=== PATIENT | female | born 1975 | race Caucasian/White ===

== ENCOUNTER → 2020-08-14 15:20 | Outpatient (CLI) | payer OTHER, SELFPAY ==
--- NOTE | ~2020-08-14 | MM_ITS ---
EXAMINATION: MM scrn janneth implant BI w zaria HISTORY: Screening mammogram TECHNIQUE: Craniocaudal and mediolateral oblique 3-D tomosynthesis images with implant displacement a nd synthetic 2-D images were generated. Craniocaudal and mediolateral oblique views of the breasts wi thout implant displacement were obtained using full field digital mammography. CAD analysis was submi tted and interpreted. COMPARISON: Comparison to multiple prior studies sequentially, with oldest reviewed study dated 08/25. BREAST PARENCHYMAL COMPOSITION: There are scattered areas of fibroglandular density. FINDINGS: There is no evidence of suspicious mass, calcification, or architectural distortion to sugg est malignancy in either breast. There has been no suspicious interval change. IMPRESSION: 1. No mammographic evidence of malignancy. 2. Recommend routine screening mammography in one year. BI-RADS Category 1: Negative Reviewed, dictated and finalized at location A.
== END ==
PROVIDERS: Visit Provider Obstetrics & Gynecology
DX: Z12.31 Encounter for screening mammogram for malignant neoplasm of breast (principal)
CPT/HCPCS: 77063; 77067

== ENCOUNTER → 2021-09-01 10:17 | Outpatient (CLI) | payer OTHER, SELFPAY ==
--- NOTE | ~2021-09-01 | MM_ITS ---
EXAMINATION: MM scrn janneth implant BI w zaria HISTORY: Screening mammogram TECHNIQUE: Craniocaudal and mediolateral oblique 3-D tomosynthesis images with implant displacement a nd synthetic 2-D images were generated. Craniocaudal and mediolateral oblique views of the breasts wi thout implant displacement were obtained using full field digital mammography. CAD analysis was submi tted and interpreted. COMPARISON: 08/14/2020, 05/29/2017, 01/21/2016 bilateral implant screening mammogram examinations BREAST PARENCHYMAL COMPOSITION: There are scattered areas of fibroglandular density. FINDINGS: Status post bilateral augmentation mammoplasty. There is no evidence of suspicious mass, ca lcification, or architectural distortion to suggest malignancy in either breast. There has been no tolliver spicious interval change. IMPRESSION: 1. No mammographic evidence of malignancy. 2. Recommend routine screening mammography in one year. BI-RADS Category 1: Negative Reviewed, dictated and finalized at location A.
== END ==
PROVIDERS: PCP Obstetrics & Gynecology; Visit Provider Obstetrics & Gynecology
DX: Z12.31 Encounter for screening mammogram for malignant neoplasm of breast (principal)
CPT/HCPCS: 77063; 77067

== ENCOUNTER 2022-01-22 14:18 | Outpatient (CLI) | payer OTHER, SELFPAY ==
--- NOTE | ~2022-01-22 | US_ITS ---
EXAMINATION:US venous doppler LE LT INDICATION:Leg pain TECHNIQUE: Multiple grayscale, color flow and Doppler images of the left lower extremity deep venous systems were obtained and reviewed. COMPARISON:Ultrasound dated 08/11/2011 FINDINGS: The common femoral, superficial femoral and popliteal veins demonstrate normal respiratory variation, augmentation and compressibility. Color flow is also seen within the posterior tibial, pe roneal, greater saphenous and profunda veins. IMPRESSION: 1: No lower extremity deep venous thrombosis. Reviewed, dictated and finalized at location A.
== END 2022-01-22 14:19 | disposition home or self-care (01) ==
PROVIDERS: PCP Internal Medicine; Visit Provider Internal Medicine
DX: R22.42 Localized swelling, mass and lump, left lower limb (principal)
CPT/HCPCS: 93971

== ENCOUNTER 2022-05-29 13:13 | Outpatient (CLI) | payer OTHER, SELFPAY ==
[2022-05-29 13:50] LABS: Strep Group A RT-PCR NOT DETECTED (Negative)
== END 2022-05-29 13:14 | disposition home or self-care (01) ==
LOC: ANHLAB 13:15
PROVIDERS: PCP Internal Medicine; Visit Provider Internal Medicine
DX: J02.9 Acute pharyngitis, unspecified (principal)
CPT/HCPCS: 87651

== ENCOUNTER → 2023-01-16 09:39 | Outpatient (CLI) | payer OTHER, SELFPAY ==
--- NOTE | ~2023-01-16 | MM_ITS ---
EXAMINATION: MM scrn janneth implant BI w zaria HISTORY: Screening mammogram TECHNIQUE: Craniocaudal and mediolateral oblique 3-D tomosynthesis images with implant displacement a nd synthetic 2-D images were generated. Craniocaudal and mediolateral oblique views of the breasts wi thout implant displacement were obtained using full field digital mammography. CAD analysis was submi tted and interpreted. COMPARISON: 09/01/2021, 08/14/2020, 05/29/2017 bilateral implant screening mammogram examinations BREAST PARENCHYMAL COMPOSITION: There are scattered areas of fibroglandular density. FINDINGS: Status post bilateral augmentation mammoplasty. There is no evidence of suspicious mass, ca lcification, or architectural distortion to suggest malignancy in either breast. There has been no tolliver spicious interval change. IMPRESSION: 1. No mammographic evidence of malignancy. 2. Recommend routine screening mammography in one year. BI-RADS Category 1: Negative Reviewed, dictated and finalized at location A.
== END ==
PROVIDERS: PCP Obstetrics & Gynecology; Visit Provider Obstetrics & Gynecology
DX: Z12.31 Encounter for screening mammogram for malignant neoplasm of breast (principal)
CPT/HCPCS: 77063; 77067

== ENCOUNTER 2023-06-16 07:31 | Outpatient (CLI) | payer OTHER, SELFPAY ==
[2023-06-16 08:02] LABS: Basophils Absolute Auto 0.1 K/mm3 (0.0-0.1); Basophils Percent Auto 1.1 % (0.2-1.2); Eosinophils Absolute Auto 0.2 K/mm3 (0-0.3); Hematocrit 43.2 % (37.0-47.0); Hemoglobin 13.9 g/dL (12.0-15.0); Immature Granulocyte Absolute 0.01 K/mm3 (0.00-0.031); Immature Granulocyte Percent A 0.2 % (0-0.5); Lymphocytes Absolute Auto 1.42 K/mm3 (0.9-3.2); Mean Corpuscular HGB Conc 32.2 g/dl (32-36); Mean Corpuscular Hemoglobin 30.2 pg (26-34); Mean Corpuscular Volume 93.9 fl (80-100); Mean Platelet Volume 9.8 fl (7.4-10.4); Monocytes Absolute Auto 0.3 K/mm3 (0.1-0.6); Monocytes Percent Auto 5.3 % (2.6-8.5); Neutrophils Absolute Auto 3.3 K/mm3 (1.3-6.7); Neutrophils Percent Auto 62.4 % (45.5-73.1); Platelet Count Result 339 k/mm3 (150-375); Red Cell Distribution Width 12.4 % (11.5-14.5); White Blood Count 5.3 K/mm3 (4.5-10.0)
[2023-06-16 08:27] LABS: Alanine Aminotransferase 24 U/L (6-35); Albumin Level 5.1 g/dL (3.5-5.1); Alkaline Phosphatase 67 U/L (38-126); Anion Gap 11 mmol/L (8-16); Aspartate Amino Transferase 29 U/L (14-36); Bilirubin,Total 1.3 mg/dL (0.2-1.3); Blood Urea Nitrogen 10 mg/dL (7-17); CRP < 0.5 mg/dL (<1.0); Calcium 9.9 mg/dL (8.4-10.2); Carbon Dioxide 25 mmol/L (22-30); Chloride 105 mmol/L (98-107); Creatine Kinase 155 U/L (30-135); Estimated Glomerular Filt Rate > 60; Glucose 74 mg/dL (65-110); Sodium 141 mmol/L (137-145)
[2023-06-16 08:28] LABS: Erythrocyte Sedimentation Rate 12 mm/hr (0-20)
[2023-06-16 08:37] LABS: Complement C3 101 mg/dL (88-165); Rheumatoid Factor < 12.0 IU/ML (<12)
[2023-06-20 03:44] LABS: Thyroid Peroxidase Antibodies 2 IU/mL (<9)
[2023-06-21 05:55] LABS: Anti Cyclic Citrullinated Pept <16 Units (<20)
[2023-06-22 07:40] LABS: Aldolase 4.2 U/L (<=8.1)
== END 2023-06-16 07:32 | disposition home or self-care (01) ==
LOC: ANHLAB 07:32
PROVIDERS: PCP Internal Medicine; Visit Provider Internal Medicine
DX: M19.90 Unspecified osteoarthritis, unspecified site (principal); R76.8 Other specified abnormal immunological findings in serum
CPT/HCPCS: 36415; 80053; 82085; 82550; 85025; 85652; 86140; 86160; 86200; 86225; 86376; 86430

== ENCOUNTER 2025-02-19 00:09 | Day surgery (SDC) | payer OTHER, SELFPAY ==
[2025-02-08 15:17] VITALS: BMI 24.7
--- OUTSIDE RECORDS SUMMARY | 2025-02-19 00:11 | XMS_ITS | Patient Health Record ---
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 Name Role Phone Migration, Provider Unavailable Unavailable Allergies Allergen (clinical drug ingredient) Drug/Non Drug Allergy documented on EMR Reaction Allergy Type Onset Date Status Substance with sulfonamide structure and antibacterial mechanism of action (substance) SULFA (SULFONAMIDE ANTIBIOTICS) (uncoded) Unknown Allergy 09/01/2023 Active metronidazole Flagyl Unknown Drug Allergy 09/01/2023 Ac tive Vicodin Unknown Drug Allergy 09/01/2023 Active Substance with penicillin structure and antibacterial mechanism of action (substance) Penicillins Unknown Drug Allergy 09/01/2023 Active Reason For Referral No Information Medications Medication SIG (Take, Route, Frequency, Duration) Notes Start Date End Date Status Biotin 10 MG Tablet 1 tablet Orally Once a day Active ZyrTEC 10 MG Tablet Chewable 1 tablet Orally Once a day A ctive Immunizations Vaccine Route Administration Date Status Comme nts Pfizer Biontech Covid-19 Vac cine 2nd dose Unknown 05/19/2020 Administered Pfizer Biontech Covid-19 Vac cine 2nd dose Unknown 06/16/2020 Administered Pfizer Biontech Covid-19 Vac cine 2nd dose Unknown 03/17/2021 Administered Social History Tobacco Use: Social History Observation Description Date Details (start date - stop date) Never Smoker NA - NA Sex Assigned At : Social History Observation Description Sex Assigned At Female Social History Tobacco Use: Social Info Question Answer Notes Tobacco Control (Standard) Tobacco use: Nonsmoker Additional Details Category Social Info Options Details Migrated Social History Migrated Social History Alcohol Intake: None 03/18/2023,Tobacco Years: Never smoker 04/14/2021 Section Notes: Substance Use Do you or have you ever smoked tobacco?: Never smoker How much tobacco do you smoke?: None Do you or have you ever used e-cigarettes or vape?: Never used electronic cigarettes What was the date of your most recent tobacco screening?: 07/22/2023 Has tobacco cessation counseling been provided?: No What is your level of alcohol consumption?: None How many years have you consumed alcohol?: 26 Do you use any illicit or recreational drugs?: No Which illicit or recreational drugs have you used?: None Have you used IV drugs?: No What is your level of caffeine consumption?: Occasional Education and Occupation What is the highest grade or level of school you have completed or the highest degree you have received?: Master's degree (e.g., MA, MS, Govind, MEd, [employer], [employer]) Are you currently employed?: Yes Who is your employer?: [address] [employer] Marriage and Sexuality What is your relationship status?: Are you sexually active?: Yes Do you use protection during sex?: Always How many children do you have?: 2 Home and Environment Are you a caregiver?: No Do you have any pets?: No Do you have smoke and carbon monoxide detectors in your home?: Yes Are you passively exposed to smoke?: No Are there any smokers in your house?: No Are there any guns present in your home?: No Lifestyle Do you feel stressed (tense, restless, nervous, or anxious, or unable to sleep at night)?: To some extent Do you use your seat belt or car seat routinely?: Yes Advance Directive Do you have an advance directive?: No Do you have a medical power of furniture manager?: Yes Gender Identity and LGBTQ Identity Gender identity: Identifies as Female Assigned sex at : Female Pronouns: she/her Problems Problem Type SNOMED Code ICD Code Onset Dates Problem Status W/U Status Risk Notes Problem Posttraumatic stress disorder (03711567) Post-traumati c stress disorder, chronic (F43.12) 4 Active confirmed Problem Primary insomnia (0720224) Primary insomnia (F51.01) 4 Active confirmed Problem Bipolar I disorder (012444281) Bipolar I disorder (F31.9) Active confirmed Plan Of Treatment No Information Insurance Providers Payer Name Payer Address Payer Phone Subscriber Number Group Number Insured Name Patient Relationship to Insured Coverage Start Date Coverage End Date [facility] [address] [place] [phone] [id number] ALEXI PIKE Self - patient is the insured Medical (General) History Medical History History ICD Code Problems: Bipolar disorder Chronic post-traumatic stress disorder Long-term drug therapy Primary insomnia , Surgical History Surgery Date(Month/Year) Other 04/24/2004 Breast surgery (49169) 10/22/2005 Endometrial ablation (06846) 10/23/2011 Any surgical history 01/21/2011
[2025-02-19 13:00] VITALS: BP 93/50; PULSE 83; RESP 20; TEMP 36.4; O2SAT 100; BMI 23.8
--- NOTE | 2025-02-19 13:16 | SUR.PREOP ---
patient stated no when asked if she has had a menstrual cycle since her late 30's following an ablation. notified of finding and no new order per
--- NOTE | 2025-02-19 13:21 | P.PNAN_ITS ---
Anes - Initial Pre Proc Eval Procedure: Operation Date: 02/19/25 14:00 Proposed Procedures p Screening Colonoscopy - Codey Montejo MD Date/Time: 02/19/25 13:21 Surgeon: Codey Montejo MD Pre Op Diagnosis: Encounter for screening for malignant neoplasm of Patient Data Age: 49 Gender: F Height: 1.57 m Weight: 59.1 kg Last Vital Signs Temp 36.4 C L 02/19/25 13:00 Pulse 83 02/19/25 13:00 Resp 20 02/19/25 13:00 BP 93/50 L 02/19/25 13:00 Pulse Ox 100 02/19/25 13:00 O2 Del Method Room Air 02/19/25 13:00 Allergies Allergy/AdvReac Type Severity Reaction Status Date / Time acetaminophen (From Vicodin) Allergy Mild Hives Verified 02/19/25 13:10 hydrocodone (From Vicodin) Allergy Mild Hives Verified 02/19/25 13:10 metronidazole Allergy Mild RASH Verified 02/19/25 13:10 Penicillins Allergy Mild RASH Verified 02/19/25 13:10 Sulfa (Sulfonamide Allergy Mild RASH Verified 02/19/25 13:10 Antibiotics) tamsulosin (From Flomax) AdvReac Intermediate Hives Verified 02/19/25 13:10 Home Medications ?Medication ?Instructions ?Recorded ?Confirmed ?Type No Home Medications 01/24/24 02/19/25 H istory Patient hx anesthesia problems: none Family hx anesthesia problems: none Results Review: All pre-operative results and documents have been reviewed as part of the pre- operative evaluation. [facility] Past Medical History Medical History BMI 23.0-23.9, adult Screening mammogram, encounter for Bulging disc HPV in female Abnormal Pap smear of cervix 11/28/09 LGSIL (+) HPV HSV-2 seropositive Anemia Bipolar affect, depressed Surgical History Surgical History History of breast augmentation (01/08/10) History of lithotripsy (09/17/17) History of gynecologic surgery (01/18/14) hscope d&c/endometrial ablation--proliferative endometrium History of colposcopy with cervical biopsy 01/08/05 benign 12/12/09 LGSIL TANNA I History of 04/24/14 primary c/s--giuseppe breech presentation 01/21/11 rpt c/s w/tubal--breech presentation, cholestasis of History of laparoscopy (05/21/95) RLQ Family History Family History Grandparent Hypertension Mother Patient's mother is in good health Sibling Patient's brother is in good health Hypertension Hypolipidemia Father Family history of diabetes mellitus in first degree relative Hypertension Carcinoma of colon Diabetes mellitus Blood clot in vein Social History Social History Smoking status: Never smoker Second hand tobacco smoke exposure: No Alcohol intake: current Drinks per week: 1 Substance use: never Substance use type: does not use Do You Feel Safe in your Home?: Yes Lack of Transportation: No Lack of Food: Never True Current Housing: I Have Housing Concerned About Future Housing: No Difficulty Paying Gas/Electric Bills: No Difficulty Paying for Meds: No Currently Unemployed: No Education: Master's Degree or Higher Difficulty w/ Childcare or Family Care: No Living arrangements: with family Additional living arrangements comments: with sp Occupation/Education: occupation Additional occupation/education comments: [employer] Gender identity (if verbalized by the patient): Female Sexual Orientation (if Verbalized by the Patient): Straight or Heterosexual Anes - Eval Final PreProcedure Day of Procedure 02/19/25 13:21 Patient weight: normal Heart: regular rate and rhythm Lungs: clear to auscultation and normal air movement Airway: Mallampati scale class II Neurological: alert and oriented Last oral intake: >/= 8 hours ASA classification: II Emergent: no Anesthetic plan: proceed Anesthesia type and monitoring: general GIVS and standard monitoring Results Review: All pre-operative results and documents have been reviewed as part of the pre- operative evaluation. Informed Consent: The patient's anesthetic plan and its attendant risks and benefits were discussed with the patient/family/POA. Questions were solicited and answers provided to the satisfaction of the patient/family/POA.
--- NOTE | 2025-02-19 13:24 | P.HP_ITS ---
H&P: HPI History of Present Illness Date/Time: 02/19/25 13:24 Chief Complaint: Family history of colon cancer Narrative: This patient has family history of colorectal cancer. This is her 1st colonoscopy. her father had colon cancer at age 72. Review of Systems Review of Systems: All systems reviewed & are unremarkable except as noted in HPI and below PMFSH Past Medical History Medical History BMI 23.0-23.9, adult Screening mammogram, encounter for Bulging disc HPV in female Abnormal Pap smear of cervix 11/28/09 LGSIL (+) HPV HSV-2 seropositive Anemia Bipolar affect, depressed Surgical History Surgical History History of breast augmentation (01/08/10) History of lithotripsy (09/17/17) History of gynecologic surgery (01/18/14) hscope d&c/endometrial ablation--proliferative endometrium History of colposcopy with cervical biopsy 01/08/05 benign 12/12/09 LGSIL TANNA I History of 04/24/14 primary c/s--giuseppe breech presentation 01/21/11 rpt c/s w/tubal--breech presentation, cholestasis of History of laparoscopy (05/21/95) RLQ Family History Family History Grandparent Hypertension Mother Patient's mother is in good health Sibling Patient's brother is in good health Hypertension Hypolipidemia Father Family history of diabetes mellitus in first degree relative Hypertension Carcinoma of colon Diabetes mellitus Blood clot in vein Social History Social History Smoking status: Never smoker Second hand tobacco smoke exposure: No Alcohol intake: current Drinks per week: 1 Substance use: never Substance use type: does not use Do You Feel Safe in your Home?: Yes Lack of Transportation: No Lack of Food: Never True Current Housing: I Have Housing Concerned About Future Housing: No Difficulty Paying Gas/Electric Bills: No Difficulty Paying for Meds: No Currently Unemployed: No Education: Master's Degree or Higher Difficulty w/ Childcare or Family Care: No Living arrangements: with family Additional living arrangements comments: with sp Occupation/Education: occupation 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[employer] Gender identity (if verbalized by the patient): Female Sexual Orientation (if Verbalized by the Patient): Straight or Heterosexual Meds Home Medications and Allergies Home Medications ?Medication ?Instructions ?Recorded ?Confirmed ?Type No Home Medications 01/24/24 02/19/25 H istory Allergies Allergy/AdvReac Type Severity Reaction Status Date / Time acetaminophen (From Vicodin) Allergy Mild Hives Verified 02/19/25 13:10 hydrocodone (From Vicodin) Allergy Mild Hives Verified 02/19/25 13:10 metronidazole Allergy Mild RASH Verified 02/19/25 13:10 Penicillins Allergy Mild RASH Verified 02/19/25 13:10 Sulfa (Sulfonamide Allergy Mild RASH Verified 02/19/25 13:10 Antibiotics) tamsulosin (From Flomax) AdvReac Intermediate Hives Verified 02/19/25 13:10 Vital Signs Vital Signs - 24 hr 02/19/25 13:00 Temperature 97.5 F L Pulse Rate 83 Respiratory Rate 20 Blood Pressure 93/50 L Pulse Oximetry 100 Oxygen Delivery Room Air Exam Const: General: cooperative and healthy appearing Resp: Effort & Inspection: normal respiratory effort and able to speak in complete sentences Auscultation: clear to auscultation bilaterally Cardio: Rate: regular rate Rhythm: regular rhythm GI: Inspection: normal to inspection GI Palp: No No hepatosplenomegaly present Auscultation: normal bowel sounds Rectal Exam: deferred Skin: General skin exam: normal color Psych: Appearance: grossly normal Mental Status: mental status grossly normal Assessment and Plan Assessment and plan (1) Family history of colon cancer: Code(s): Z80.0 - Family history of malignant neoplasm of digestive organs Status: Acute Assessment and Plan: The patient is deemed a good candidate for the procedure. Consent signed. Will proceed.
[2025-02-19] MEDS: LACTATED RINGERS 1,000 ML 150 ML IV CONT (13:25)
[2025-02-19 14:08] VITALS: BP 102/60; PULSE 73; RESP 18; O2SAT 99
[2025-02-19 14:18] VITALS: BP 102/62; PULSE 70; RESP 20; O2SAT 100
[2025-02-19 14:28] VITALS: BP 109/63; PULSE 62; RESP 18; O2SAT 100
== END 2025-02-19 14:45 | disposition home or self-care (01) ==
PROVIDERS: PCP Internal Medicine; Visit Provider Internal Medicine Gastroenterology
PROC: 0DJD8ZZ Inspection of Lower Intestinal Tract, Via Natural or Artificial Opening Endoscopic (ICD-10-PCS; CPT 45378; principal; 2025-02-19 14:00)
DX: Z12.11 Encounter for screening for malignant neoplasm of colon (principal); K64.8 Other hemorrhoids; Z80.0 Family history of malignant neoplasm of digestive organs
CPT/HCPCS: 45378; J2704; J7120